=== PATIENT | female | born 1995 | race Caucasian/White ===

== ENCOUNTER 2017-07-02 06:55 | Day surgery (SDC) | payer BC ==
[~2017-07-02] VITALS: Ht 160 cm; Wt 50.8 kg
[~2017-07-02 06:55] MED LIST: DEPO-PROVER150 MG/ML IM
[2017-07-02] MEDS ORDERED: TYLENOL EXTRA500 MG PO (07:42)
[2017-07-02 07:43] VITALS: BP 118/78
[2017-07-02 07:43] LABS: HEMATOCRIT 39.3 % (36.0-46.0); MCV 90.6 FL (83-99)
[2017-07-02 11:35] VITALS: BP 112/75
[2017-07-02 12:40] VITALS: BP 112/66
== END 2017-07-02 13:02 | disposition home or self-care (01) ==
LOC: SDC 06:55
PROVIDERS: Obstetrics & Gynecology
PROC: 0UBC7ZX Excision of Cervix, Via Natural or Artificial Opening, Diagnostic (ICD-10-PCS; principal; 2017-07-02)
DX: N87.1 Moderate cervical dysplasia (principal); Z87.891 Personal history of nicotine dependence
CPT/HCPCS: 81025; 85014; 85018; 86850; 86900; 86901; 88305; 88307; J1100; J1885; J2250; J2405; J3010